=== PATIENT | male | born 1975 | race Caucasian/White ===

== ENCOUNTER 2016-03-27 22:51 | Emergency (ER) | payer OTHER ==
[2016-03-27 23:41] LABS: BASO % 0.8 % (0.0-1.0); EOS # 0.6 K/mm3 (0.0-0.50); EOS % 9.7 % (0.0-3.0); LARGE UNSTAINED CELL # 0.2 K/mm3 (0.0-0.4); LARGE UNSTAINED CELL % 3.2 % (0.0-4.0); LYMPH # 1.7 K/mm3 (1.5-4.5); LYMPH % 23.3 % (24.0-44.0); MEAN CORPUSCULAR HEMOGLOBIN 29.4 pg (27.0-33.0); MEAN CORPUSCULAR VOLUME 86.3 fl (80.0-96.0); MONO # 0.4 K/mm3 (0.0-0.8); MONO % 6.4 % (0.0-5.0); NEUTROPHILS # 3.7 K/mm3 (1.8-7.7); NEUTROPHILS % 56.7 % (36.0-66.0); PLATELET COUNT, AUTOMATED 206 k/mm3 (150-450); RED CELL DISTRIBUTION WIDTH 13.7 % (11.5-14.5); WHITE BLOOD COUNT 6.6 K/mm3 (4.0-10.0)
[2016-03-27 23:52] LABS: INR 1.06
[2016-03-28 00:11] LABS: ANION GAP 8 MEQ/L (8-16); BLOOD UREA NITROGEN 17 MG/DL (7-18); CARBON DIOXIDE LEVEL 29 MEQ/L (21-32); CHLORIDE LEVEL 105 MEQ/L (98-107); CREATININE FOR GFR 1.02 MG/DL (0.70-1.30); GLOMERULAR FILTRATION RATE > 60.0 (>60); GLUCOSE, FASTING 119 MG/DL (70-105); SODIUM LEVEL 142 MEQ/L (136-145)
--- NOTE | 2016-03-28 05:18 | EDDOCDS ---
Physician Documentation [facility] Name: Julian Johnson Age: 41 yrs Sex: Male : 1975 Arrival Date: 03/27/2016 Time: 22:51 Bed OBSERVATION Private MD: Luke [facility] [place] Disposition: 03/28/16 04:47 Discharged to Home/Self Care. Impression: Chest pain, unspecified. - Condition is Stable. - Medication Reconciliation, Local Pharmacy Hours form. - Follow up: Darinel Iyer; When: Call to arrange an appointment; Reason: Recheck today's complaints. - Problem is new. - Symptoms have improved. Historical: - Allergies: No known drug Allergies; - Home Meds: 1. aspirin 81 mg Oral tab 1 tab once daily hasnt in a week 2. Benadryl 25 mg Oral cap 1 cap as needed 3. berlinta 90 mg twice a day 4. losartan 100 mg oral tab 1 tab once daily 5. Metoprolol Tartrate Oral once daily 6. fluticasone 50 mcg/actuation nasal spsn 1 spray once daily - PMHx: Hypertension; [place] (December 2015); - PSHx: nose surgery; turbanostopy; cardiac cath; septoplasty; - Social history: Smoking status: Patient states was never smoker of tobacco. Patient uses alcohol occasionally. No barriers to communication noted, The patient speaks fluent Cameroonian. - Family history: Not pertinent. - : The pt / caregiver states he / she is not on anticoagulants. Home medication list is obtained from the patient. - Exposure Risk Screening:: None identified. Vital Signs: 03/27 22:58 BP 185 / 101; Pulse 87; Resp 18; Temp 98.4(O); Pulse Ox 97% on R/A; Weight 92.53 kg / jmv 203.99 lbs (R); Height 64 in. (162.56 cm) (R); Pain 0/10; 23:18 BP 172 / 106 (auto/); jp6 23:18 Pulse 76 MON; Pulse Ox 97% ; jp6 23:33 BP 166 / 98 (auto/); jp6 23:33 Pulse 74 MON; Pulse Ox 95% ; jp6 23:38 Pulse 76 MON; Pulse Ox 96% ; jp6 03/28 00:18 BP 159 / 99 (auto/); jp6 00:18 Pulse 68 MON; Pulse Ox 95% ; jp6 00:33 BP 165 / 97 (auto/); jp6 00:33 Pulse 66 MON; Pulse Ox 96% ; jp6 00:48 BP 156 / 95 (auto/); jp6 00:48 Pulse 64 MON; Pulse Ox 96% ; jp6 01:03 BP 158 / 98 (auto/); jp6 01:03 Pulse 70 MON; Pulse Ox 94% ; jp6 01:18 BP 157 / 93 (auto/); jp6 01:18 Pulse 68 MON; Pulse Ox 95% ; jp6 01:33 BP 151 / 92 (auto/); jp6 01:33 Pulse 66 MON; Pulse Ox 95% ; jp6 01:48 BP 156 / 97 (auto/); jp6 01:48 Pulse 60 MON; Pulse Ox 95% ; jp6 02:03 BP 157 / 97 (auto/); jp6 02:03 Pulse 68 MON; Pulse Ox 95% ; jp6 02:18 BP 156 / 98 (auto/); jp6 02:18 Pulse 64 MON; Pulse Ox 92% ; jp6 02:33 BP 149 / 99 (auto/); jp6 02:33 Pulse 70 MON; Pulse Ox 95% ; jp6 02:48 BP 153 / 105 (auto/); sls1 02:48 Pulse 56 MON; Pulse Ox 94% ; sls1 03:02 Pulse 60 MON; Pulse Ox 93% ; sls1 03:03 BP 147 / 86 (auto/); sls1 03:18 BP 136 / 84 (auto/); sls1 03:18 Pulse 58 MON; Pulse Ox 93% ; sls1 03:33 BP 145 / 95 (auto/); sls1 03:33 Pulse 76 MON; Pulse Ox 97% ; sls1 03:47 Pulse 66 MON; Pulse Ox 93% ; sls1 03:48 BP 149 / 100 (auto/); sls1 04:33 BP 153 / 106 (auto/); sls1 04:33 Pulse 56 MON; Pulse Ox 95% ; sls1 04:48 BP 157 / 109 (auto/); sls1 04:49 Pulse 62 MON; Pulse Ox 95% ; sls1 05:00 BP 150 / 92; Pulse 66; Resp 18; Temp 96.8(O); Pulse Ox 97% on R/A; Pain 0/10; jane 01/01 22:58 Body Mass Index 35.02 (92.53 kg, 162.56 cm) jmv MDM: 03/27 22:55 ECG WITH READING ER PHYS+CARDIAG ordered. EDMS 23:10 Aspirin Chewable Tablet 324 mg PO once ordered. ke 23:10 NS 0.9% 1000 ml IV at 100 mL/hr continuous ordered. ke 23:10 Senior It Specialist/Pulse Ox/q 30 min VS ordered. ke 23:10 IV Saline Lock ordered. ke 23:10 Rhythm Strip to chart ordered. ke 23:10 Undress patient appropriately for examination ordered. ke 23:11 Basic Metabolic Profile Ordered. EDMS 23:11 CBC with Diff Ordered. EDMS 23:11 Cardiac Injury Profile Ordered. EDMS 23:11 Prothrombin Time Profile\E\INR Ordered. EDMS 23:11 Troponin Ordered. EDMS 23:11 Chest, 2 View (pa\E\lat) Ordered. EDMS 03/28 00:44 Misc Computer Operations Technician Order ordered. cs11 00:58 CARDIAC MARKER PANEL Ordered. EDMS 00:59 ECG WITH READING ER PHYS ordered. EDMS 01:00 Misc Computer Operations Technician Order complete. tmm1 04:09 Basic Metabolic Profile Reviewed. cs11 04:09 CBC with Diff Reviewed. cs11 04:09 Cardiac Injury Profile Reviewed. cs11 04:09 Prothrombin Time Profile\E\INR Reviewed. cs11 04:09 Troponin Reviewed. cs11 04:44 CARDIAC MARKER PANEL Reviewed. cs11 Administered Medications: 03/27 23:15 Not Given (already recived by EMS): Aspirin Chewable Tablet 324 mg PO once jp6 23:27 Drug: NS 0.9% 1000 ml [sodium chloride 0.9 % intravenous solution] Route: IV; Rate: 100 jp6 mL/hr; Site: left antecubital; Signatures: Dispatcher [employer] EDMS Petar Tsai, Vaughn Mcintyre DO DO cs11 McLear, Ember, SUPERVISOR PRODUCTION SUPERVISOR PRODUCTION tmm1 Jessie Larios,KARMEN RN Ling Wahl RN RN jp6 MTDD
--- NOTE | 2016-03-28 05:18 | EDDOCDS ---
Nurse's Notes [facility] Name: Julian Johnson Age: 41 yrs Sex: Male : 1975 Arrival Date: 03/27/2016 Time: 22:51 Bed OBSERVATION Private MD: Luke [facility] Diagnosis: Chest pain, unspecified Presentation: 03/27 22:52 Presenting complaint: EMS states: acute onset of chest pain, starting at [facility] 22:05. [facility] [place] pt states this did not feel like his previous GA. pt describes it as a "bell horse". Aspirin was taken GRIP WRAPPER. Adult Sepsis Screening: The patient does not have new or worsening altered mentation. Patient's respiratory rate is less than 22. Systolic blood pressure is greater than 100. Patient has a qSOFA score of 0- Negative Sepsis Screen. 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 Transition of care: patient was not received from another setting of care. 22:52 Acuity: DEANDRA Level 3 [facility] [place] 22:52 Method Of Arrival: Ambulance [facility] [place] 22:55 Suicide/Homicide risk assessment- the patient denies having any suicidal and/or mlc homicidal ideations and does not present with any other emotional, behavioral or mental health complaints. Triage Assessment: 23:01 General: Appears in no apparent distress, comfortable, Behavior is cooperative. Pain: mlc Denies pain. HIV screening NA for this visit Offered previously. The patient is triaged at the bedside. See Assessment in Nurses Notes section of ED record. Neurological: Level of Consciousness is awake, alert, obeys commands, Oriented to person, place, time. Cardiovascular: Chest pain is denied. Respiratory: Airway is patent Respiratory effort is even, unlabored, Respiratory pattern is regular. 03/28 05:17 Cardiovascular: Chest pain is described as none upon arrival. radiates Does not jp6 radiate. episodes began 1 hour prior to arrival. Historical: - Allergies: No known drug Allergies; - Home Meds: 1. aspirin 81 mg Oral tab 1 tab once daily hasnt in a week 2. Benadryl 25 mg Oral cap 1 cap as needed 3. berlinta 90 mg twice a day 4. losartan 100 mg oral tab 1 tab once daily 5. Metoprolol Tartrate Oral once daily 6. fluticasone 50 mcg/actuation nasal spsn 1 spray once daily - PMHx: Hypertension; [place] (December 2015); - PSHx: nose surgery; turbanostopy; cardiac cath; septoplasty; - Social history: Smoking status: Patient states was never smoker of tobacco. Patient uses alcohol occasionally. No barriers to communication noted, The patient speaks fluent German. - Family history: Not pertinent. - : The pt / caregiver states he / she is not on anticoagulants. Home medication list is obtained from the patient. - Exposure Risk Screening:: None identified. Screenin/01 23:18 Screening information is obtained from the patient. Fall risk: No risks identified. jp6 Assistance ADL's: requires no assistance with activities of daily living. Abuse/DV Screen: The patient / caregiver reports he/she is: not in a situation that causes fear, pain or injury. Nutritional screening: No deficits noted. Advance Directives: Currently, there is no health care proxy. There is no active DNR order. There is no living will. home support is adequate. Assessment: 23:28 General: Appears in no apparent distress, comfortable, well developed, Behavior is jp6 appropriate for age, cooperative. Pain: Denies pain. Neurological: No deficits noted. Level of Consciousness is awake, alert, Oriented to person, place, time. EENT: No deficits noted. Cardiovascular: Capillary refill < 3 seconds Heart tones S1 S2 Rhythm is sinus rhythm No ectopy. Respiratory: Airway is patent Respiratory effort is even, unlabored, Respiratory pattern is regular, symmetrical, Breath sounds are clear bilaterally. GI: No deficits noted. : No deficits noted. Derm: Skin is pink, warm & dry. Musculoskeletal: No deficits noted. 03/28 00:30 Reassessment: Patient appears in no apparent distress at this time. Patient states jp6 symptoms have improved. General: Appears in no apparent distress, comfortable. Cardiovascular: Rhythm is sinus rhythm No ectopy. Respiratory: Airway is patent Respiratory effort is even, unlabored, Respiratory pattern is regular, symmetrical. Derm: Skin is pink, warm & dry. 01:30 Reassessment: Patient appears in no apparent distress at this time. Patient states jp6 symptoms have improved. General: aware of repeat labs and ekg at 0400.. Cardiovascular: Capillary refill < 3 seconds Rhythm is sinus rhythm No ectopy. Respiratory: Airway is patent Respiratory effort is even, unlabored, Respiratory pattern is regular, symmetrical. Derm: Skin is pink, warm & dry. 02:33 Reassessment: Patient appears in no apparent distress at this time. General: Appears in jp6 no apparent distress, comfortable, well developed, Behavior is appropriate for age, cooperative. Pain: Denies pain. Neurological: No deficits noted. Level of Consciousness is awake, alert, Oriented to person, place, time. EENT: No deficits noted. Cardiovascular: Capillary refill < 3 seconds Heart tones S1 S2. Cardiovascular: Rhythm is sinus rhythm No ectopy. Respiratory: Airway is patent Respiratory effort is even, unlabored, Respiratory pattern is regular, symmetrical, Breath sounds are clear bilaterally. GI: No deficits noted. : No deficits noted. Derm: Skin is pink, warm & dry. Musculoskeletal: No deficits noted. 03:30 Reassessment: Patient appears in no apparent distress at this time. Cardiovascular: jp6 Rhythm is sinus rhythm No ectopy. Respiratory: Airway is patent Respiratory effort is even, unlabored, Respiratory pattern is regular, symmetrical. Derm: Skin is pink, warm & dry. 04:30 Reassessment: Patient appears in no apparent distress at this time. Patient states jp6 symptoms have improved. Cardiovascular: Capillary refill < 3 seconds Rhythm is sinus rhythm No ectopy. Respiratory: Airway is patent Respiratory effort is even, unlabored, Respiratory pattern is regular, symmetrical. Derm: Skin is pink, warm & dry. Vital Signs: 03/27 22:58 BP 185 / 101; Pulse 87; Resp 18; Temp 98.4(O); Pulse Ox 97% on R/A; Weight 92.53 kg jmv (R); Height 64 in. (162.56 cm) (R); Pain 0/10; 23:18 BP 172 / 106 (auto/); jp6 23:18 Pulse 76 MON; Pulse Ox 97% ; jp6 23:33 BP 166 / 98 (auto/); jp6 23:33 Pulse 74 MON; Pulse Ox 95% ; jp6 23:38 Pulse 76 MON; Pulse Ox 96% ; jp6 03/28 00:18 BP 159 / 99 (auto/); jp6 00:18 Pulse 68 MON; Pulse Ox 95% ; jp6 00:33 BP 165 / 97 (auto/); jp6 00:33 Pulse 66 MON; Pulse Ox 96% ; jp6 00:48 BP 156 / 95 (auto/); jp6 00:48 Pulse 64 MON; Pulse Ox 96% ; jp6 01:03 BP 158 / 98 (auto/); jp6 01:03 Pulse 70 MON; Pulse Ox 94% ; jp6 01:18 BP 157 / 93 (auto/); jp6 01:18 Pulse 68 MON; Pulse Ox 95% ; jp6 01:33 BP 151 / 92 (auto/); jp6 01:33 Pulse 66 MON; Pulse Ox 95% ; jp6 01:48 BP 156 / 97 (auto/); jp6 01:48 Pulse 60 MON; Pulse Ox 95% ; jp6 02:03 BP 157 / 97 (auto/); jp6 02:03 Pulse 68 MON; Pulse Ox 95% ; jp6 02:18 BP 156 / 98 (auto/); jp6 02:18 Pulse 64 MON; Pulse Ox 92% ; jp6 02:33 BP 149 / 99 (auto/); jp6 02:33 Pulse 70 MON; Pulse Ox 95% ; jp6 02:48 BP 153 / 105 (auto/); sls1 02:48 Pulse 56 MON; Pulse Ox 94% ; sls1 03:02 Pulse 60 MON; Pulse Ox 93% ; sls1 03:03 BP 147 / 86 (auto/); sls1 03:18 BP 136 / 84 (auto/); sls1 03:18 Pulse 58 MON; Pulse Ox 93% ; sls1 03:33 BP 145 / 95 (auto/); sls1 03:33 Pulse 76 MON; Pulse Ox 97% ; sls1 03:47 Pulse 66 MON; Pulse Ox 93% ; sls1 03:48 BP 149 / 100 (auto/); sls1 04:33 BP 153 / 106 (auto/); sls1 04:33 Pulse 56 MON; Pulse Ox 95% ; sls1 04:48 BP 157 / 109 (auto/); sls1 04:49 Pulse 62 MON; Pulse Ox 95% ; sls1 05:00 BP 150 / 92; Pulse 66; Resp 18; Temp 96.8(O); Pulse Ox 97% on R/A; Pain 0/10; jane 03/27 22:58 Body Mass Index 35.02 (92.53 kg, 162.56 cm) v Vitals: 03/27 23:01 Log In Time N/A - ambulance arrival. [facility] [place] ED Course: 22:51 Patient visited by Ember Blair PCA. tmm1 22:51 Other - Complete Info On Cds is Private Physician. tmm1 22:51 Patient moved to Waiting tmm1 22:52 BRITNI Butler is Private Physician. tmm1 22:52 Patient moved to 5 tmm1 22:54 Triage Initiated mlc 23:00 Pt greeted and oriented to ED. Patient advised of names of staff involved in care, jmv location of call benitez, wait times and NPO status. Patient has correct armband on for positive identification. Placed in gown. Bed in low position. Call light in reach. Side rails up X2. spray i painter on. Pulse ox on. NIBP on. 23:01 Patient visited by Shyam Cox PCA. jmv 23:02 Patient visited by Jessie Larios RN. mlc 23:02 Patient visited by Leslie Bautista PCA. jane 23:02 EKG done. (by ED staff). Reviewed by Petar RALPH. jane 23:03 Petar Tsai FNP is PHCP. ke 23:03 Patient visited by Petar Tsai FNP. ke 23:05 Patient visited by Petar Tsai FNP. ke 23:14 Ling Kulkarni,RN is Primary Nurse. jp6 23:18 The patient / caregiver is instructed regarding the plan of care and ED course. jp6 23:18 Maintain field IV. Dressing intact. Good blood return noted. Site clean & dry. Gauge & jp6 site: 18g left ac. No procedures done that require assistance. 23:25 Patient visited by Petar Tsai FNP. ke 23:41 Vaughn Rangel DO is Attending Physician. cs11 01 00:26 Patient visited by Ling Kulkarni,KARMEN. jp6 00:45 Patient moved to OBSERVATION cs11 04:09 Patient visited by Shyam Cox PCA. jmv 04:09 EKG done. (by ED staff). Reviewed by Vaughn Rangel DO. jmv 04:30 Discontinued IV intact, bleeding controlled, pressure dressing applied, No jp6 redness/swelling at site. 04:47 Darinel Iyer is Referral Physician. cs11 05:00 Patient visited by Leslie Bautista PCA. jane Administered Medications: 03/27 23:15 Not Given (already recived by EMS): Aspirin Chewable Tablet 324 mg PO once jp6 23:27 Drug: NS 0.9% 1000 ml [sodium chloride 0.9 % intravenous solution] Route: IV; Rate: 100 jp6 mL/hr; Site: left antecubital; Order Results: Lab Order: Basic Metabolic Profile; SPEC'M 03/27/16 23:22 Test: GLUCOSE, FASTING; Value: 119; Range: 70-105; Abnormal: Above high normal; Units: MG/DL; Status: F Test: BLOOD UREA NITROGEN; Value: 17; Range: 7-18; Units: MG/DL; Status: F Test: CREATININE FOR GFR; Value: 1.02; Range: 0.70-1.30; Units: MG/DL; Status: F Test: GLOMERULAR FILTRATION RATE; Value: > 60.0; Range: >60; Status: F Test: SODIUM LEVEL; Value: 142; Range: 136-145; Units: MEQ/L; Status: F Test: POTASSIUM SERUM; Value: 4.0; Range: 3.5-5.1; Units: MEQ/L; Status: F Test: CHLORIDE LEVEL; Value: 105; Range: 98-107; Units: MEQ/L; Status: F Test: CARBON DIOXIDE LEVEL; Value: 29; Range: 21-32; Units: MEQ/L; Status: F Test: ANION GAP; Value: 8; Range: 8-16; Units: MEQ/L; Status: F Test: CALCIUM LEVEL; Value: 9.0; Range: 8.5-10.1; Units: MG/DL; Status: F Test Note: ; Units are mL/min/1.73 m2 Chronic Kidney Disease Staging per NKF: Stage I & II GFR >=60 Normal to Mildly Decreased Stage III GFR 30-59 Moderately Decreased Stage IV GFR 15-29 Severely Decreased Stage V GFR <15 Very Little GFR Left ESRD GFR <15 on RUGBY LEAGUE FOOTBALLER Lab Order: CBC with Diff; SPECM 03/27/16 23:22 Test: WHITE BLOOD COUNT; Value: 6.6; Range: 4.0-10.0; Units: K/mm3; Status: F Test: RED BLOOD COUNT; Value: 4.11; Range: 4.30-6.10; Abnormal: Below low normal; Units: M/mm3; Status: F Test: HEMOGLOBIN; Value: 12.1; Range: 14.0-18.0; Abnormal: Below low normal; Units: g/dl; Status: F Test: HEMATOCRIT; Value: 35.5; Range: 42.0-52.0; Abnormal: Below low normal; Units: %; Status: F Test: MEAN CORPUSCULAR VOLUME; Value: 86.3; Range: 80.0-96.0; Units: fl; Status: F Test: MEAN CORPUSCULAR HEMOGLOBIN; Value: 29.4; Range: 27.0-33.0; Units: pg; Status: F Test: MEAN CORPUSCULAR HGB CONC; Value: 34.0; Range: 32.0-36.5; Units: g/dl; Status: F Test: RED CELL DISTRIBUTION WIDTH; Value: 13.7; Range: 11.5-14.5; Units: %; Status: F Test: PLATELET COUNT, AUTOMATED; Value: 206; Range: 150-450; Units: k/mm3; Status: F Test: NEUTROPHILS %; Value: 56.7; Range: 36.0-66.0; Units: %; Status: F Test: LYMPH %; Value: 23.3; Range: 24.0-44.0; Abnormal: Below low normal; Units: %; Status: F Test: MONO %; Value: 6.4; Range: 0.0-5.0; Abnormal: Above high normal; Units: %; Status: F Test: EOS %; Value: 9.7; Range: 0.0-3.0; Abnormal: Above high normal; Units: %; Status: F Test: BASO %; Value: 0.8; Range: 0.0-1.0; Units: %; Status: F Test: LARGE UNSTAINED CELL %; Value: 3.2; Range: 0.0-4.0; Units: %; Status: F Test: NEUTROPHILS #; Value: 3.7; Range: 1.8-7.7; Units: K/mm3; Status: F Test: LYMPH #; Value: 1.7; Range: 1.5-4.5; Units: K/mm3; Status: F Test: MONO #; Value: 0.4; Range: 0.0-0.8; Units: K/mm3; Status: F Test: EOS #; Value: 0.6; Range: 0.0-0.50; Abnormal: Above high normal; Units: K/mm3; Status: F Test: BASO #; Value: 0.0; Range: 0.0-0.2; Units: K/mm3; Status: F Test: LARGE UNSTAINED CELL #; Value: 0.2; Range: 0.0-0.4; Units: K/mm3; Status: F Lab Order: Cardiac Injury Profile; [facility] 03/27/16 23:22 Test: CPK CREATINE PHOSPHOKINASE; Value: 183; Range: 39-308; Units: U/L; Status: F Test: CK-MB VALUE MASS; Value: 2.7; Range: 0.0-3.6; Units: NG/ML; Status: F Test: MB/CK RELATIVE INDEX; Value: 1.47; Range: < OR =4; Status: F Test Note: ; DIAGNOSIS CRITERIA MMB ng/ml Relative Index (RI) NON-AMI < or = 5 N/A BAXTER ZONE > 5 < or = 4 AMI > 5 > 4 Lab Order: Prothrombin Time Profile\\E\\INR; [facility] 03/27/16 23:22 Test: PROTHROMBIN TIME; Value: 13.9; Range: 12.3-14.5; Units: SECONDS; Status: F Test: INR; Value: 1.06; Status: F Test Note: ; THERAPUTIC HUMAN INR VALUES INDICATIONS NORMAL RANGES PROPHYLAXIS/TREATMENT OF: VENOUS THROMBOSIS 2.0-3.0 PULMONARY EMBOLISM 2.0-3.0 PREVENTION OF SYSTEMIC EMBOLISM FROM: TISSUE HEART VALVES 2.0-3.0 ACUTE MYOCARDIAL INFARCTION 2.0-3.0 VALVULAR HEART DISEASE 2.0-3.0 ATRIAL FIBRILLATION 2.0-3.0 MECHANICAL VALVES(HIGH RISK) 2.5-3.5 RECURRENT MYOCARDIAL INFARCTION 2.5-3.5 Lab Order: Troponin; [facility] 23:22 Test: TROPONIN I; Value: 0.03; Range: < 0.10; Units: NG/ML; Status: F Test Note: ; Troponin I Reference Interval for [place] LOCI: 99th Percentile= 0.00-0.045 ng/ml Risk Stratification: <= 0.10 ng/ml Decreased Risk for Adverse Clinical Events. 0.10-1.50 ng/ml Increased Risk for Adverse Clinical Events. Evaluation of additional criterion and/or repeat testing in 2-6 hours is suggested to rule out myocardial damage. >= 1.50 ng/ml Indicative of Myocardial Injury. Lab Order: CARDIAC MARKER PANEL; SPE[facility] 03/28/16 04:00 Test: CPK CREATINE PHOSPHOKINASE; Value: 159; Range: 39-308; Units: U/L; Status: F Test: CK-MB VALUE MASS; Value: 2.5; Range: 0.0-3.6; Units: NG/ML; Status: F Test: MB/CK RELATIVE INDEX; Value: 1.57; Range: < OR =4; Status: F Test: TROPONIN I; Value: 0.05; Range: < 0.10; Abnormal: Delta; Units: NG/ML; Status: F Test Note: ; DIAGNOSIS CRITERIA MMB ng/ml Relative Index (RI) NON-AMI < or = 5 N/A BAXTER ZONE > 5 < or = 4 AMI > 5 > 4 Outcome: 03/28 04:30 Discharge Assessment: Patient awake, alert and oriented x 3. No cognitive and/or jp6 functional deficits noted. Patient verbalized understanding of disposition instructions. patient administered narcotics - no. The following High Risk Discharge criteria are identified: None. Discharged to home ambulatory, with significant other. Condition: improved. Discharge instructions given to patient, Instructed on discharge instructions, follow up and referral plans. Demonstrated understanding of instructions, Pt was receptive of discharge instructions/ teaching. No special radiology studies were completed. Property sent home with patient. 04:47 Discharge ordered by Provider. cs11 05:17 Patient left the ED. jp6 Signatures: Petar Tsai, EXPERT WITNESS EXPERT WITNESS Leslie Christianson, MANAGING MEMBER MANAGING MEMBER Fernanda Peña, RN RN sls1 Vaughn Rangel DO DO cs11 Ember Blair, MANAGING MEMBER MANAGING MEMBER tmm1 Jessie Larios,KARMEN RN Ling Wahl RN RN jp6 Shyam Cox, MANAGING MEMBER MANAGING MEMBER jmv MTDD
--- NOTE | 2016-03-28 10:08 | ECGEPIP ---
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
--- NOTE | 2016-03-28 10:10 | ECGEPIP ---
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
--- NOTE | 2016-03-28 13:17 | REP ---
Clinical: Chest pain . Comparison: 02/05/2016 . Technique: PA and lateral. Findings: The mediastinum and cardiac silhouette are normal. The lung tyler are clear and without acute consolidation, effusion, or pneumothorax. The skeletal structures are intact and normal. Impression: 1. No acute cardiopulmonary process. Signed by Hernandez Maynard MD 03/28/2016 01:09 P
--- NOTE | 2016-03-30 06:18 | EDDOCDS ---
Physician Documentation [facility] Name: Julian Johnson Age: 41 yrs Sex: Male : 1975 Arrival Date: 03/27/2016 Time: 22:51 Bed OBSERVATION Private MD: Luke [place] [facility] [place] Disposition: 03/28/16 04:47 Discharged to Home/Self Care. Impression: Chest pain, unspecified. - Condition is Stable. - Medication Reconciliation, Local Pharmacy Hours form. - Follow up: Darinel Iyer; When: Call to arrange an appointment; Reason: Recheck today's complaints. - Problem is new. - Symptoms have improved. Historical: - Allergies: No known drug Allergies; - Home Meds: 1. aspirin 81 mg Oral tab 1 tab once daily hasnt in a week 2. Benadryl 25 mg Oral cap 1 cap as needed 3. berlinta 90 mg twice a day 4. losartan 100 mg oral tab 1 tab once daily 5. Metoprolol Tartrate Oral once daily 6. fluticasone 50 mcg/actuation nasal spsn 1 spray once daily - PMHx: Hypertension; [place] (December 2015); - PSHx: nose surgery; turbanostopy; cardiac cath; septoplasty; - Social history: Smoking status: Patient states was never smoker of tobacco. Patient uses alcohol occasionally. No barriers to communication noted, The patient speaks fluent Salvadorean. - Family history: Not pertinent. - : The pt / caregiver states he / she is not on anticoagulants. Home medication list is obtained from the patient. - Exposure Risk Screening:: None identified. Vital Signs: 03/27 22:58 BP 185 / 101; Pulse 87; Resp 18; Temp 98.4(O); Pulse Ox 97% on R/A; Weight 92.53 kg / jmv 203.99 lbs (R); Height 64 in. (162.56 cm) (R); Pain 0/10; 23:18 BP 172 / 106 (auto/); jp6 23:18 Pulse 76 MON; Pulse Ox 97% ; jp6 23:33 BP 166 / 98 (auto/); jp6 23:33 Pulse 74 MON; Pulse Ox 95% ; jp6 23:38 Pulse 76 MON; Pulse Ox 96% ; jp6 03/28 00:18 BP 159 / 99 (auto/); jp6 00:18 Pulse 68 MON; Pulse Ox 95% ; jp6 00:33 BP 165 / 97 (auto/); jp6 00:33 Pulse 66 MON; Pulse Ox 96% ; jp6 00:48 BP 156 / 95 (auto/); jp6 00:48 Pulse 64 MON; Pulse Ox 96% ; jp6 01:03 BP 158 / 98 (auto/); jp6 01:03 Pulse 70 MON; Pulse Ox 94% ; jp6 01:18 BP 157 / 93 (auto/); jp6 01:18 Pulse 68 MON; Pulse Ox 95% ; jp6 01:33 BP 151 / 92 (auto/); jp6 01:33 Pulse 66 MON; Pulse Ox 95% ; jp6 01:48 BP 156 / 97 (auto/); jp6 01:48 Pulse 60 MON; Pulse Ox 95% ; jp6 02:03 BP 157 / 97 (auto/); jp6 02:03 Pulse 68 MON; Pulse Ox 95% ; jp6 02:18 BP 156 / 98 (auto/); jp6 02:18 Pulse 64 MON; Pulse Ox 92% ; jp6 02:33 BP 149 / 99 (auto/); jp6 02:33 Pulse 70 MON; Pulse Ox 95% ; jp6 02:48 BP 153 / 105 (auto/); sls1 02:48 Pulse 56 MON; Pulse Ox 94% ; sls1 03:02 Pulse 60 MON; Pulse Ox 93% ; sls1 03:03 BP 147 / 86 (auto/); sls1 03:18 BP 136 / 84 (auto/); sls1 03:18 Pulse 58 MON; Pulse Ox 93% ; sls1 03:33 BP 145 / 95 (auto/); sls1 03:33 Pulse 76 MON; Pulse Ox 97% ; sls1 03:47 Pulse 66 MON; Pulse Ox 93% ; sls1 03:48 BP 149 / 100 (auto/); sls1 04:33 BP 153 / 106 (auto/); sls1 04:33 Pulse 56 MON; Pulse Ox 95% ; sls1 04:48 BP 157 / 109 (auto/); sls1 04:49 Pulse 62 MON; Pulse Ox 95% ; sls1 05:00 BP 150 / 92; Pulse 66; Resp 18; Temp 96.8(O); Pulse Ox 97% on R/A; Pain 0/10; jane 01/01 22:58 Body Mass Index 35.02 (92.53 kg, 162.56 cm) jmv MDM: 03/27 22:55 ECG WITH READING ER PHYS+CARDIAG ordered. EDMS 23:10 Aspirin Chewable Tablet 324 mg PO once ordered. ke 23:10 NS 0.9% 1000 ml IV at 100 mL/hr continuous ordered. ke 23:10 District Resource Officer/Pulse Ox/q 30 min VS ordered. ke 23:10 IV Saline Lock ordered. ke 23:10 Rhythm Strip to chart ordered. ke 23:10 Undress patient appropriately for examination ordered. ke 23:11 Basic Metabolic Profile Ordered. EDMS 23:11 CBC with Diff Ordered. EDMS 23:11 Cardiac Injury Profile Ordered. EDMS 23:11 Prothrombin Time Profile\E\INR Ordered. EDMS 23:11 Troponin Ordered. EDMS 23:11 Chest, 2 View (pa\E\lat) Ordered. EDMS 03/28 00:44 Misc Philatelic Consultant Order ordered. cs11 00:58 CARDIAC MARKER PANEL Ordered. EDMS 00:59 ECG WITH READING ER PHYS ordered. EDMS 01:00 Misc Philatelic Consultant Order complete. tmm1 04:09 Basic Metabolic Profile Reviewed. cs11 04:09 CBC with Diff Reviewed. cs11 04:09 Cardiac Injury Profile Reviewed. cs11 04:09 Prothrombin Time Profile\E\INR Reviewed. cs11 04:09 Troponin Reviewed. cs11 04:44 CARDIAC MARKER PANEL Reviewed. cs11 05:26 [facility] Payment Agreement was scanned into [employer] and attached to record. lja 08:14 T-Sheet-- Draft Copy was scanned into [employer] and attached to record. gb 13:36 ECG/EKG was scanned into [employer] and attached to record. gb 13:36 Trend VS was scanned into [employer] and attached to record. gb 14:24 PCR was scanned into [employer] and attached to record. gb Administered Medications: 03/27 23:15 Not Given (already recived by EMS): Aspirin Chewable Tablet 324 mg PO once jp6 23:27 Drug: NS 0.9% 1000 ml [sodium chloride 0.9 % intravenous solution] Route: IV; Rate: 100 jp6 mL/hr; Site: left antecubital; Signatures: Dispatcher [employer] EDMS Vonda Cooney, Reg Reg gb Petar Tsai, BULLET CHARGING MACHINE OPERATOR BULLET CHARGING MACHINE OPERATOR Vaughn Sewell, DO cs11 McLear, Ember, TRIM SETTER HELPER TRIM SETTER HELPER tmm1 Jessie Larios,RN RN mlc Arel, Ling Rivera,KARMEN RN jp6 The chart was reviewed and I authenticate all verbal orders and agree with the evaluation and treatment provided.Attachments: 03/28 05:26 [facility] Payment Agreement lja 08:14 T-Sheet-- Draft Copy gb 13:36 ECG/EKG gb Chart Complete MTDD
--- NOTE | 2016-03-30 06:18 | EDDOCDS ---
Physician Documentation [facility] Name: Julian Johnson Age: 41 yrs Sex: Male : 1975 Arrival Date: 03/27/2016 Time: 22:51 Bed OBSERVATION Private MD: Luke [facility] [place] Disposition: 03/28/16 04:47 Discharged to Home/Self Care. Impression: Chest pain, unspecified. - Condition is Stable. - Medication Reconciliation, Local Pharmacy Hours form. - Follow up: Darinel Iyer; When: Call to arrange an appointment; Reason: Recheck today's complaints. - Problem is new. - Symptoms have improved. Historical: - Allergies: No known drug Allergies; - Home Meds: 1. aspirin 81 mg Oral tab 1 tab once daily hasnt in a week 2. Benadryl 25 mg Oral cap 1 cap as needed 3. berlinta 90 mg twice a day 4. losartan 100 mg oral tab 1 tab once daily 5. Metoprolol Tartrate Oral once daily 6. fluticasone 50 mcg/actuation nasal spsn 1 spray once daily - PMHx: Hypertension; [place] (December 2015); - PSHx: nose surgery; turbanostopy; cardiac cath; septoplasty; - Social history: Smoking status: Patient states was never smoker of tobacco. Patient uses alcohol occasionally. No barriers to communication noted, The patient speaks fluent Mauritian. - Family history: Not pertinent. - : The pt / caregiver states he / she is not on anticoagulants. Home medication list is obtained from the patient. - Exposure Risk Screening:: None identified. Vital Signs: 03/27 22:58 BP 185 / 101; Pulse 87; Resp 18; Temp 98.4(O); Pulse Ox 97% on R/A; Weight 92.53 kg / jmv 203.99 lbs (R); Height 64 in. (162.56 cm) (R); Pain 0/10; 23:18 BP 172 / 106 (auto/); jp6 23:18 Pulse 76 MON; Pulse Ox 97% ; jp6 23:33 BP 166 / 98 (auto/); jp6 23:33 Pulse 74 MON; Pulse Ox 95% ; jp6 23:38 Pulse 76 MON; Pulse Ox 96% ; jp6 03/28 00:18 BP 159 / 99 (auto/); jp6 00:18 Pulse 68 MON; Pulse Ox 95% ; jp6 00:33 BP 165 / 97 (auto/); jp6 00:33 Pulse 66 MON; Pulse Ox 96% ; jp6 00:48 BP 156 / 95 (auto/); jp6 00:48 Pulse 64 MON; Pulse Ox 96% ; jp6 01:03 BP 158 / 98 (auto/); jp6 01:03 Pulse 70 MON; Pulse Ox 94% ; jp6 01:18 BP 157 / 93 (auto/); jp6 01:18 Pulse 68 MON; Pulse Ox 95% ; jp6 01:33 BP 151 / 92 (auto/); jp6 01:33 Pulse 66 MON; Pulse Ox 95% ; jp6 01:48 BP 156 / 97 (auto/); jp6 01:48 Pulse 60 MON; Pulse Ox 95% ; jp6 02:03 BP 157 / 97 (auto/); jp6 02:03 Pulse 68 MON; Pulse Ox 95% ; jp6 02:18 BP 156 / 98 (auto/); jp6 02:18 Pulse 64 MON; Pulse Ox 92% ; jp6 02:33 BP 149 / 99 (auto/); jp6 02:33 Pulse 70 MON; Pulse Ox 95% ; jp6 02:48 BP 153 / 105 (auto/); sls1 02:48 Pulse 56 MON; Pulse Ox 94% ; sls1 03:02 Pulse 60 MON; Pulse Ox 93% ; sls1 03:03 BP 147 / 86 (auto/); sls1 03:18 BP 136 / 84 (auto/); sls1 03:18 Pulse 58 MON; Pulse Ox 93% ; sls1 03:33 BP 145 / 95 (auto/); sls1 03:33 Pulse 76 MON; Pulse Ox 97% ; sls1 03:47 Pulse 66 MON; Pulse Ox 93% ; sls1 03:48 BP 149 / 100 (auto/); sls1 04:33 BP 153 / 106 (auto/); sls1 04:33 Pulse 56 MON; Pulse Ox 95% ; sls1 04:48 BP 157 / 109 (auto/); sls1 04:49 Pulse 62 MON; Pulse Ox 95% ; sls1 05:00 BP 150 / 92; Pulse 66; Resp 18; Temp 96.8(O); Pulse Ox 97% on R/A; Pain 0/10; jane 01/01 22:58 Body Mass Index 35.02 (92.53 kg, 162.56 cm) jmv MDM: 03/27 22:55 ECG WITH READING ER PHYS+CARDIAG ordered. EDMS 23:10 Aspirin Chewable Tablet 324 mg PO once ordered. ke 23:10 NS 0.9% 1000 ml IV at 100 mL/hr continuous ordered. ke 23:10 Belt Back Operator/Pulse Ox/q 30 min VS ordered. ke 23:10 IV Saline Lock ordered. ke 23:10 Rhythm Strip to chart ordered. ke 23:10 Undress patient appropriately for examination ordered. ke 23:11 Basic Metabolic Profile Ordered. EDMS 23:11 CBC with Diff Ordered. EDMS 23:11 Cardiac Injury Profile Ordered. EDMS 23:11 Prothrombin Time Profile\E\INR Ordered. EDMS 23:11 Troponin Ordered. EDMS 23:11 Chest, 2 View (pa\E\lat) Ordered. EDMS 03/28 00:44 Misc Wedger Machine Order ordered. cs11 00:58 CARDIAC MARKER PANEL Ordered. EDMS 00:59 ECG WITH READING ER PHYS ordered. EDMS 01:00 Misc Wedger Machine Order complete. tmm1 04:09 Basic Metabolic Profile Reviewed. cs11 04:09 CBC with Diff Reviewed. cs11 04:09 Cardiac Injury Profile Reviewed. cs11 04:09 Prothrombin Time Profile\E\INR Reviewed. cs11 04:09 Troponin Reviewed. cs11 04:44 CARDIAC MARKER PANEL Reviewed. cs11 05:26 [facility] [place] Payment Agreement was scanned into [employer] and attached to record. lja 08:14 T-Sheet-- Draft Copy was scanned into [employer] and attached to record. gb 13:36 ECG/EKG was scanned into [employer] and attached to record. gb 13:36 Trend VS was scanned into [employer] and attached to record. gb 14:24 PCR was scanned into [employer] and attached to record. gb Administered Medications: 03/27 23:15 Not Given (already recived by EMS): Aspirin Chewable Tablet 324 mg PO once jp6 23:27 Drug: NS 0.9% 1000 ml [sodium chloride 0.9 % intravenous solution] Route: IV; Rate: 100 jp6 mL/hr; Site: left antecubital; Signatures: Dispatcher [employer] EDMS Vonda Cooney, Reg Reg gb Petar Tsai, WINE BOTTLE INSPECTOR WINE BOTTLE INSPECTOR Vaughn Sewell, DO cs11 McLear, Ember, PROPULSION MACHINERY SERVICE ENGINEER PROPULSION MACHINERY SERVICE ENGINEER tmm1 Jessie Larios,RN RN mlc Arel, Ling Rivera,KARMEN RN jp6 The chart was reviewed and I authenticate all verbal orders and agree with the evaluation and treatment provided.Attachments: 03/28 05:26 [facility] [place] Payment Agreement lja 08:14 T-Sheet-- Draft Copy gb 13:36 ECG/EKG gb Chart Complete MTDD
--- NOTE | 2016-03-30 06:18 | EDDOCDS ---
Nurse's Notes [facility] Name: Julian Arrieta Age: 41 yrs Sex: Male : 1975 Arrival Date: 03/27/2016 Time: 22:51 Bed OBSERVATION Private MD: Luke [facility] [place] Diagnosis: Chest pain, unspecified Presentation: 03/27 22:52 Presenting complaint: EMS states: acute onset of chest pain, starting at aprix 22:05. [facility] [place] pt states this did not feel like his previous [place]. pt describes it as a "bell horse". 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 Adult Sepsis Screening: The patient does not have new or worsening altered mentation. Patient's respiratory rate is less than 22. Systolic blood pressure is greater than 100. Patient has a qSOFA score of 0- Negative Sepsis Screen. 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 Transition of care: patient was not received from another setting of care. 22:52 Acuity: DEANDRA Level 3 [facility] [place] 22:52 Method Of Arrival: Ambulance [facility] [place] 22:55 Suicide/Homicide risk assessment- the patient denies having any suicidal and/or mlc homicidal ideations and does not present with any other emotional, behavioral or mental health complaints. Triage Assessment: 23:01 General: Appears in no apparent distress, comfortable, Behavior is cooperative. Pain: mlc Denies pain. HIV screening NA for this visit Offered previously. The patient is triaged at the bedside. See Assessment in Nurses Notes section of ED record. Neurological: Level of Consciousness is awake, alert, obeys commands, Oriented to person, place, time. Cardiovascular: Chest pain is denied. Respiratory: Airway is patent Respiratory effort is even, unlabored, Respiratory pattern is regular. 03/28 05:17 Cardiovascular: Chest pain is described as none upon arrival. radiates Does not jp6 radiate. episodes began 1 hour prior to arrival. Historical: - Allergies: No known drug Allergies; - Home Meds: 1. aspirin 81 mg Oral tab 1 tab once daily hasnt in a week 2. Benadryl 25 mg Oral cap 1 cap as needed 3. berlinta 90 mg twice a day 4. losartan 100 mg oral tab 1 tab once daily 5. Metoprolol Tartrate Oral once daily 6. fluticasone 50 mcg/actuation nasal spsn 1 spray once daily - PMHx: Hypertension; [place] (December 2015); - PSHx: nose surgery; turbanostopy; cardiac cath; septoplasty; - Social history: Smoking status: Patient states was never smoker of tobacco. Patient uses alcohol occasionally. No barriers to communication noted, The patient speaks fluent Ukrainian. - Family history: Not pertinent. - : The pt / caregiver states he / she is not on anticoagulants. Home medication list is obtained from the patient. - Exposure Risk Screening:: None identified. Screenin/01 23:18 Screening information is obtained from the patient. Fall risk: No risks identified. jp6 Assistance ADL's: requires no assistance with activities of daily living. Abuse/DV Screen: The patient / caregiver reports he/she is: not in a situation that causes fear, pain or injury. Nutritional screening: No deficits noted. Advance Directives: Currently, there is no health care proxy. There is no active DNR order. There is no living will. home support is adequate. Assessment: 23:28 General: Appears in no apparent distress, comfortable, well developed, Behavior is jp6 appropriate for age, cooperative. Pain: Denies pain. Neurological: No deficits noted. Level of Consciousness is awake, alert, Oriented to person, place, time. EENT: No deficits noted. Cardiovascular: Capillary refill < 3 seconds Heart tones S1 S2 Rhythm is sinus rhythm No ectopy. Respiratory: Airway is patent Respiratory effort is even, unlabored, Respiratory pattern is regular, symmetrical, Breath sounds are clear bilaterally. GI: No deficits noted. : No deficits noted. Derm: Skin is pink, warm & dry. Musculoskeletal: No deficits noted. 03/28 00:30 Reassessment: Patient appears in no apparent distress at this time. Patient states jp6 symptoms have improved. General: Appears in no apparent distress, comfortable. Cardiovascular: Rhythm is sinus rhythm No ectopy. Respiratory: Airway is patent Respiratory effort is even, unlabored, Respiratory pattern is regular, symmetrical. Derm: Skin is pink, warm & dry. 01:30 Reassessment: Patient appears in no apparent distress at this time. Patient states jp6 symptoms have improved. General: aware of repeat labs and ekg at 0400.. Cardiovascular: Capillary refill < 3 seconds Rhythm is sinus rhythm No ectopy. Respiratory: Airway is patent Respiratory effort is even, unlabored, Respiratory pattern is regular, symmetrical. Derm: Skin is pink, warm & dry. 02:33 Reassessment: Patient appears in no apparent distress at this time. General: Appears in jp6 no apparent distress, comfortable, well developed, Behavior is appropriate for age, cooperative. Pain: Denies pain. Neurological: No deficits noted. Level of Consciousness is awake, alert, Oriented to person, place, time. EENT: No deficits noted. Cardiovascular: Capillary refill < 3 seconds Heart tones S1 S2. Cardiovascular: Rhythm is sinus rhythm No ectopy. Respiratory: Airway is patent Respiratory effort is even, unlabored, Respiratory pattern is regular, symmetrical, Breath sounds are clear bilaterally. GI: No deficits noted. : No deficits noted. Derm: Skin is pink, warm & dry. Musculoskeletal: No deficits noted. 03:30 Reassessment: Patient appears in no apparent distress at this time. Cardiovascular: jp6 Rhythm is sinus rhythm No ectopy. Respiratory: Airway is patent Respiratory effort is even, unlabored, Respiratory pattern is regular, symmetrical. Derm: Skin is pink, warm & dry. 04:30 Reassessment: Patient appears in no apparent distress at this time. Patient states jp6 symptoms have improved. Cardiovascular: Capillary refill < 3 seconds Rhythm is sinus rhythm No ectopy. Respiratory: Airway is patent Respiratory effort is even, unlabored, Respiratory pattern is regular, symmetrical. Derm: Skin is pink, warm & dry. Vital Signs: 03/27 22:58 BP 185 / 101; Pulse 87; Resp 18; Temp 98.4(O); Pulse Ox 97% on R/A; Weight 92.53 kg jmv (R); Height 64 in. (162.56 cm) (R); Pain 0/10; 23:18 BP 172 / 106 (auto/); jp6 23:18 Pulse 76 MON; Pulse Ox 97% ; jp6 23:33 BP 166 / 98 (auto/); jp6 23:33 Pulse 74 MON; Pulse Ox 95% ; jp6 23:38 Pulse 76 MON; Pulse Ox 96% ; jp6 03/28 00:18 BP 159 / 99 (auto/); jp6 00:18 Pulse 68 MON; Pulse Ox 95% ; jp6 00:33 BP 165 / 97 (auto/); jp6 00:33 Pulse 66 MON; Pulse Ox 96% ; jp6 00:48 BP 156 / 95 (auto/); jp6 00:48 Pulse 64 MON; Pulse Ox 96% ; jp6 01:03 BP 158 / 98 (auto/); jp6 01:03 Pulse 70 MON; Pulse Ox 94% ; jp6 01:18 BP 157 / 93 (auto/); jp6 01:18 Pulse 68 MON; Pulse Ox 95% ; jp6 01:33 BP 151 / 92 (auto/); jp6 01:33 Pulse 66 MON; Pulse Ox 95% ; jp6 01:48 BP 156 / 97 (auto/); jp6 01:48 Pulse 60 MON; Pulse Ox 95% ; jp6 02:03 BP 157 / 97 (auto/); jp6 02:03 Pulse 68 MON; Pulse Ox 95% ; jp6 02:18 BP 156 / 98 (auto/); jp6 02:18 Pulse 64 MON; Pulse Ox 92% ; jp6 02:33 BP 149 / 99 (auto/); jp6 02:33 Pulse 70 MON; Pulse Ox 95% ; jp6 02:48 BP 153 / 105 (auto/); sls1 02:48 Pulse 56 MON; Pulse Ox 94% ; sls1 03:02 Pulse 60 MON; Pulse Ox 93% ; sls1 03:03 BP 147 / 86 (auto/); sls1 03:18 BP 136 / 84 (auto/); sls1 03:18 Pulse 58 MON; Pulse Ox 93% ; sls1 03:33 BP 145 / 95 (auto/); sls1 03:33 Pulse 76 MON; Pulse Ox 97% ; sls1 03:47 Pulse 66 MON; Pulse Ox 93% ; sls1 03:48 BP 149 / 100 (auto/); sls1 04:33 BP 153 / 106 (auto/); sls1 04:33 Pulse 56 MON; Pulse Ox 95% ; sls1 04:48 BP 157 / 109 (auto/); sls1 04:49 Pulse 62 MON; Pulse Ox 95% ; sls1 05:00 BP 150 / 92; Pulse 66; Resp 18; Temp 96.8(O); Pulse Ox 97% on R/A; Pain 0/10; jane 03/27 22:58 Body Mass Index 35.02 (92.53 kg, 162.56 cm) v Vitals: 03/27 23:01 Log In Time N/A - ambulance arrival. [facility] [place] ED Course: 22:51 Patient visited by Ember Blair PCA. tmm1 22:51 Other - Complete Info On Cds is Private Physician. tmm1 22:51 Patient moved to Waiting tmm1 22:52 BRITNI Butler is Private Physician. tmm1 22:52 Patient moved to 5 tmm1 22:54 Triage Initiated mlc 23:00 Pt greeted and oriented to ED. Patient advised of names of staff involved in care, jmv location of call benitez, wait times and NPO status. Patient has correct armband on for positive identification. Placed in gown. Bed in low position. Call light in reach. Side rails up X2. tie in hand on. Pulse ox on. NIBP on. 23:01 Patient visited by Shyam Cox PCA. jmv 23:02 Patient visited by Jessie Larios RN. mlc 23:02 Patient visited by Leslie Bautista PCA. jane 23:02 EKG done. (by ED staff). Reviewed by Petar RALPH. jane 23:03 Petar Tsai FNP is PHCP. ke 23:03 Patient visited by Petar Tsai FNP. ke 23:05 Patient visited by Petar Tsai FNP. ke 23:14 Ling Kulkarni,RN is Primary Nurse. jp6 23:18 The patient / caregiver is instructed regarding the plan of care and ED course. jp6 23:18 Maintain field IV. Dressing intact. Good blood return noted. Site clean & dry. Gauge & jp6 site: 18g left ac. No procedures done that require assistance. 23:25 Patient visited by Petar Tsai FNP. ke 23:41 Kalpana Garzon DO is Attending Physician. cs11 02 00:26 Patient visited by Ling Kulkarni,KARMEN. jp6 00:45 Patient moved to OBSERVATION cs11 04:09 Patient visited by Shyam Cox PCA. jmv 04:09 EKG done. (by ED staff). Reviewed by Kalpana Garzon DO. jmv 04:30 Discontinued IV intact, bleeding controlled, pressure dressing applied, No jp6 redness/swelling at site. 04:47 Darinel Iyer is Referral Physician. cs11 05:00 Patient visited by Leslie Bautista PCA. jane 05:26 [facility] Payment Agreement was scanned into [employer] and attached to record. lja 08:14 T-Sheet-- Draft Copy was scanned into [employer]Wh[employer] and attached to record. gb 10:20 EKG-ADULT Returned. EDMS 10:20 ECG WITH READING ER PHYS Returned. EDMS 13:22 Chest, 2 View (pa\\E\\lat) Returned. EDMS 13:36 ECG/EKG was scanned into [employer] and attached to record. gb 13:36 Trend VS was scanned into [employer] and attached to record. gb 14:24 PCR was scanned into [employer] and attached to record. gb Administered Medications: 03/27 23:15 Not Given (already recived by EMS): Aspirin Chewable Tablet 324 mg PO once jp6 23:27 Drug: NS 0.9% 1000 ml [sodium chloride 0.9 % intravenous solution] Route: IV; Rate: 100 jp6 mL/hr; Site: left antecubital; Attachments: 13:36 Trend VS gb Order Results: Lab Order: Basic Metabolic Profile; SPEC'M 03/27/16 23:22 Test: GLUCOSE, FASTING; Value: 119; Range: 70-105; Abnormal: Above high normal; Units: MG/DL; Status: F Test: BLOOD UREA NITROGEN; Value: 17; Range: 7-18; Units: MG/DL; Status: F Test: CREATININE FOR GFR; Value: 1.02; Range: 0.70-1.30; Units: MG/DL; Status: F Test: GLOMERULAR FILTRATION RATE; Value: > 60.0; Range: >60; Status: F Test: SODIUM LEVEL; Value: 142; Range: 136-145; Units: MEQ/L; Status: F Test: POTASSIUM SERUM; Value: 4.0; Range: 3.5-5.1; Units: MEQ/L; Status: F Test: CHLORIDE LEVEL; Value: 105; Range: 98-107; Units: MEQ/L; Status: F Test: CARBON DIOXIDE LEVEL; Value: 29; Range: 21-32; Units: MEQ/L; Status: F Test: ANION GAP; Value: 8; Range: 8-16; Units: MEQ/L; Status: F Test: CALCIUM LEVEL; Value: 9.0; Range: 8.5-10.1; Units: MG/DL; Status: F Test Note: ; Units are mL/min/1.73 m2 Chronic Kidney Disease Staging per NKF: Stage I & II GFR >=60 Normal to Mildly Decreased Stage III GFR 30-59 Moderately Decreased Stage IV GFR 15-29 Severely Decreased Stage V GFR <15 Very Little GFR Left ESRD GFR <15 on 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 DESIGN ENGINEER Lab Order: CBC with Diff; SPEC'M 03/27/16 23:22 Test: WHITE BLOOD COUNT; Value: 6.6; Range: 4.0-10.0; Units: K/mm3; Status: F Test: RED BLOOD COUNT; Value: 4.11; Range: 4.30-6.10; Abnormal: Below low normal; Units: M/mm3; Status: F Test: HEMOGLOBIN; Value: 12.1; Range: 14.0-18.0; Abnormal: Below low normal; Units: g/dl; Status: F Test: HEMATOCRIT; Value: 35.5; Range: 42.0-52.0; Abnormal: Below low normal; Units: %; Status: F Test: MEAN CORPUSCULAR VOLUME; Value: 86.3; Range: 80.0-96.0; Units: fl; Status: F Test: MEAN CORPUSCULAR HEMOGLOBIN; Value: 29.4; Range: 27.0-33.0; Units: pg; Status: F Test: MEAN CORPUSCULAR HGB CONC; Value: 34.0; Range: 32.0-36.5; Units: g/dl; Status: F Test: RED CELL DISTRIBUTION WIDTH; Value: 13.7; Range: 11.5-14.5; Units: %; Status: F Test: PLATELET COUNT, AUTOMATED; Value: 206; Range: 150-450; Units: k/mm3; Status: F Test: NEUTROPHILS %; Value: 56.7; Range: 36.0-66.0; Units: %; Status: F Test: LYMPH %; Value: 23.3; Range: 24.0-44.0; Abnormal: Below low normal; Units: %; Status: F Test: MONO %; Value: 6.4; Range: 0.0-5.0; Abnormal: Above high normal; Units: %; Status: F Test: EOS %; Value: 9.7; Range: 0.0-3.0; Abnormal: Above high normal; Units: %; Status: F Test: BASO %; Value: 0.8; Range: 0.0-1.0; Units: %; Status: F Test: LARGE UNSTAINED CELL %; Value: 3.2; Range: 0.0-4.0; Units: %; Status: F Test: NEUTROPHILS #; Value: 3.7; Range: 1.8-7.7; Units: K/mm3; Status: F Test: LYMPH #; Value: 1.7; Range: 1.5-4.5; Units: K/mm3; Status: F Test: MONO #; Value: 0.4; Range: 0.0-0.8; Units: K/mm3; Status: F Test: EOS #; Value: 0.6; Range: 0.0-0.50; Abnormal: Above high normal; Units: K/mm3; Status: F Test: BASO #; Value: 0.0; Range: 0.0-0.2; Units: K/mm3; Status: F Test: LARGE UNSTAINED CELL #; Value: 0.2; Range: 0.0-0.4; Units: K/mm3; Status: F Lab Order: Cardiac Injury Profile; SPEC'M 03/27/16 23:22 Test: CPK CREATINE PHOSPHOKINASE; Value: 183; Range: 39-308; Units: U/L; Status: F Test: CK-MB VALUE MASS; Value: 2.7; Range: 0.0-3.6; Units: NG/ML; Status: F Test: MB/CK RELATIVE INDEX; Value: 1.47; Range: < OR =4; Status: F Test Note: ; DIAGNOSIS CRITERIA MMB ng/ml Relative Index (RI) NON-AMI < or = 5 N/A BAXTER ZONE > 5 < or = 4 AMI > 5 > 4 Lab Order: Prothrombin Time Profile\\E\\INR; SPEC'M 03/27/16 23:22 Test: PROTHROMBIN TIME; Value: 13.9; Range: 12.3-14.5; Units: SECONDS; Status: F Test: INR; Value: 1.06; Status: F Test Note: ; THERAPUTIC HUMAN INR VALUES INDICATIONS NORMAL RANGES PROPHYLAXIS/TREATMENT OF: VENOUS THROMBOSIS 2.0-3.0 PULMONARY EMBOLISM 2.0-3.0 PREVENTION OF SYSTEMIC EMBOLISM FROM: TISSUE HEART VALVES 2.0-3.0 ACUTE MYOCARDIAL INFARCTION 2.0-3.0 VALVULAR HEART DISEASE 2.0-3.0 ATRIAL FIBRILLATION 2.0-3.0 MECHANICAL VALVES(HIGH RISK) 2.5-3.5 RECURRENT MYOCARDIAL INFARCTION 2.5-3.5 Lab Order: Troponin; SPEC'M 03/27/16 23:22 Test: TROPONIN I; Value: 0.03; Range: < 0.10; Units: NG/ML; Status: F Test Note: ; Troponin I Reference Interval for [place] LOCI: 99th Percentile= 0.00-0.045 ng/ml Risk Stratification: <= 0.10 ng/ml Decreased Risk for Adverse Clinical Events. 0.10-1.50 ng/ml Increased Risk for Adverse Clinical Events. Evaluation of additional criterion and/or repeat testing in 2-6 hours is suggested to rule out myocardial damage. >= 1.50 ng/ml Indicative of Myocardial Injury. Lab Order: CARDIAC MARKER PANEL; SPEC'M 03/28/16 04:00 Test: CPK CREATINE PHOSPHOKINASE; Value: 159; Range: 39-308; Units: U/L; Status: F Test: CK-MB VALUE MASS; Value: 2.5; Range: 0.0-3.6; Units: NG/ML; Status: F Test: MB/CK RELATIVE INDEX; Value: 1.57; Range: < OR =4; Status: F Test: TROPONIN I; Value: 0.05; Range: < 0.10; Abnormal: Delta; Units: NG/ML; Status: F Test Note: ; DIAGNOSIS CRITERIA MMB ng/ml Relative Index (RI) NON-AMI < or = 5 N/A BAXTER ZONE > 5 < or = 4 AMI > 5 > 4 Radiology Order: EKG-ADULT Test: EKG-ADULT REASON FOR EXAMINATION: Chest Pain; Stationary ECG Study; [facility] - ED; ; Test Date: 2016-03-27; Pat Name: JULIAN ARRIETA Department:; Room: -; 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; : 1975 Requested By: KALPANA GARZON; Order Number: [id number] William MD: Marcelina Wells; Measurements; Intervals [place]; Rate: 72 P: 48; KS: 173 QRS: -12; QRSD: 102 T: 7; QT: 366; QTc: 403; Interpretive Statements; SINUS RHYTHM; ?POSSIBLE OLD INFERIOR KS; INCREASED RATE 02/05/16; Electronically Signed On 03-28-2016 10:08:32 EST by Marcelina Wells; Radiology Order: Chest, 2 View (pa\\E\\lat) Test: Chest, 2 View (pa\\E\\lat) REASON FOR EXAMINATION: Chest Pain; Clinical: Chest pain .; ; Comparison: 02/05/2016 .; ; Technique: PA and lateral.; ; Findings:; The mediastinum and cardiac silhouette are normal. The lung tyler are clear and; without acute consolidation, effusion, or pneumothorax. The skeletal structures; are intact and normal.; ; Impression:; 1. 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 No cognitive and/or jp6 functional deficits noted. Patient verbalized understanding of disposition instructions. patient administered narcotics - no. The following High Risk Discharge criteria are identified: None. Discharged to home ambulatory, with significant other. Condition: improved. Discharge instructions given to patient, Instructed on discharge instructions, follow up and referral plans. Demonstrated understanding of instructions, Pt was receptive of discharge instructions/ teaching. No special radiology studies were completed. Property sent home with patient. 04:47 Discharge ordered by Provider. cs11 05:17 Patient left the ED. jp6 Signatures: Dispatcher [employer] EDMS Vonda Cooney, Dejan Reg gb Petar Tsai, HOSE CEMENTER HOSE CEMENTER ke Lily, Leslie, MULTIMEDIA PRODUCTION ASSISTANT MULTIMEDIA PRODUCTION ASSISTANT jane Fernanda Lopez, RN RN sls1 Kalpana Garzon, DO cs11 McLear, Ember, MULTIMEDIA PRODUCTION ASSISTANT MULTIMEDIA PRODUCTION ASSISTANT tmm1 Jessie Larios,RN RN [facility] [place] [place] [employer], Ling Rivera RN RN jp6 Shyam Cox, MULTIMEDIA PRODUCTION ASSISTANT MULTIMEDIA PRODUCTION ASSISTANT jmv Chart Complete MTDD
== END 2016-03-28 05:17 | disposition home or self-care (01) ==
LOC: M ED 22:51
DX: R07.9 Chest pain, unspecified (principal); I10 Essential (primary) hypertension; I25.2 Old myocardial infarction; Z79.82 Long term (current) use of aspirin; Z79.899 Other long term (current) drug therapy

== ENCOUNTER 2016-07-09 03:34 | Emergency (ER) | payer OTHER ==
[~2016-07-09] VITALS: Ht 170.2 cm; Wt 97.5 kg
[2016-07-09] MEDS ORDERED: CETI10TA PO (03:49)
[2016-07-09] MEDS ORDERED: BENA25CA4 PO (03:49)
[2016-07-09] MEDS ORDERED: TERB250T57 PO (03:49)
[2016-07-09] MEDS ORDERED: ASPI1TAB PO (03:49)
[2016-07-09] MEDS ORDERED: METO50TA2 PO (03:49)
[2016-07-09] MEDS ORDERED: BRIL90TA PO (03:49)
[2016-07-09] MEDS ORDERED: LOSA100T36 PO (03:49)
[2016-07-09 05:42] VITALS: BP 137/91
[2016-07-09] MEDS ORDERED: predniSONE 20 MG TAB PO ONE (06:15)
[2016-07-09] MEDS ORDERED: IPRATROPIUM 0.5MG/ALBUTEROL 2.5MG INH SOL UD 3ML (DUONEB)(J7620) NEB ONE (06:15)
[2016-07-09] MEDS ORDERED: ZITHTAB PO (07:13)
[2016-07-09] MEDS ORDERED: PRED20TA PO (07:13)
[2016-07-09] MEDS ORDERED: ALBU17IN INH (07:13)
--- NOTE | 2016-07-09 08:51 | REP ---
REASON: Cough. COMPARISON: 03/27/2016 FINDINGS: The superior mediastinal structures are midline. The cardiac silhouette is unremarkable in size, shape, and position. The diaphragmatic surfaces of the lungs are regular, and the costophrenic angles are clear. The pulmonary tyler are clear. The imaged osseous structures are intact. IMPRESSION: There is no acute cardiopulmonary disease. Signed by Lang Mitchell DO 07/09/2016 10:19 A
--- NOTE | 2016-07-10 09:12 | ECGEPIP ---
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
== END 2016-07-09 07:38 | disposition home or self-care (01) ==
LOC: EDBD 03:34 → EDSEX 03:34 → M ED 04:36
DX: J20.9 Acute bronchitis, unspecified (principal); I25.2 Old myocardial infarction; I10 Essential (primary) hypertension; Z98.61 Coronary angioplasty status; Z79.82 Long term (current) use of aspirin; Z79.899 Other long term (current) drug therapy; Z79.52 Long term (current) use of systemic steroids

== ENCOUNTER 2018-06-25 05:45 | Emergency (ER) | payer OTHER ==
[~2018-06-25] VITALS: Ht 170.2 cm; Wt 95.5 kg
[~2018-06-25 05:45] MED LIST: ALBU17IN INH; ASPI81TA26 PO; ATOR80TA59 PO; BENA25CA4 PO; BRIL90TA PO; CETI10TA PO; LOSA100T50 PO; METO50TA7 PO; PRED20TA PO; TERB250T12 PO; ZITHTAB PO
[2018-06-25 06:56] VITALS: BP 152/107
== END 2018-06-25 06:56 | disposition home or self-care (01) ==
LOC: M ED 05:45
DX: J34.89 Other specified disorders of nose and nasal sinuses (principal); I25.2 Old myocardial infarction; I10 Essential (primary) hypertension; Z87.01 Personal history of pneumonia (recurrent); M19.90 Unspecified osteoarthritis, unspecified site; M22.2X9 Patellofemoral disorders, unspecified knee; Z79.82 Long term (current) use of aspirin; Z79.899 Other long term (current) drug therapy

== ENCOUNTER 2018-12-20 10:59 | Emergency (ER) | payer OTHER ==
[~2018-12-20] VITALS: Ht 170.2 cm; Wt 108.5 kg
[2018-12-20 11:18] VITALS: BP 156/102
[2018-12-20] MEDS: IPRATROPIUM 0.5MG/ALBUTEROL 2.5MG INH SOL UD 3ML (DUONEB)(J7620) NEB PRN ×2 (11:53→12:13)
--- NOTE | 2018-12-20 12:21 | REP ---
PA and lateral chest: Comparison is 07/09/2016. The lung tyler are clear. The cardiac size is normal. The rafael, mediastinum, and skeletal structures are unremarkable. Impression: Negative PA and lateral chest. There is no interval change. Electronically Signed by Braulio Gillette MD 12/20/2018 12:13 P
[2018-12-20] MEDS ORDERED: MUCI600T31 PO (12:29)
[2018-12-20] MEDS ORDERED: PROAAER10 INH (12:29)
[2018-12-20] MEDS ORDERED: PRED20TA PO (12:29)
== END 2018-12-20 12:36 | disposition home or self-care (01) ==
LOC: M ED 10:59
DX: J40 Bronchitis, not specified as acute or chronic (principal); I10 Essential (primary) hypertension; E78.5 Hyperlipidemia, unspecified; Z79.82 Long term (current) use of aspirin; Z79.899 Other long term (current) drug therapy